=== PATIENT | male | born 1980 | race Two or more races ===

== ENCOUNTER 2020-06-20 16:07 | Emergency (ER) | payer OTHER ==
[~2020-06-20] VITALS: Ht 170.2 cm; Wt 62.0 kg
[2020-06-20 16:08] VITALS: BP 100/59
[2020-06-20] MEDS ORDERED: IBUPROFEN 600MG TABLET PO ONE (16:30)
== END 2020-06-20 16:35 | disposition home or self-care (01) ==
LOC: ER 16:07
DX: S16.1XXA Strain of muscle, fascia and tendon at neck level, initial encounter (principal); S46.811A Strain of other muscles, fascia and tendons at shoulder and upper arm level, right arm, initial encounter; V43.52XA Car driver injured in collision with other type car in traffic accident, initial encounter; Y93.89 Activity, other specified; Y92.411 Interstate highway as the place of occurrence of the external cause
CPT/HCPCS: 99283